=== PATIENT | male | born 1950 | race Caucasian/White ===

== ENCOUNTER 2020-10-26 09:30 | Outpatient (RCR) | payer MEDICARE, MEDICAID, SELFPAY | END 2020-12-20 10:01 | disposition other institution (70) | LOC: HO.OT 09:30 | PROVIDERS: PCP Internal Medicine Pulmonary Disease; Visit Provider Internal Medicine Pulmonary Disease | DX: M79.642 Pain in left hand (principal) | CPT/HCPCS: 97033; 97035; 97110; 97140; 97166; 97760 ==